=== PATIENT | male | born 1945 | race American Indian/Alaskan Native ===

== ENCOUNTER 2019-05-06 15:45 | Observation (INO) | payer MEDICARE ==
--- NOTE | 2019-05-06 16:43 | Emergency Department Report ---
ED Syncope HPI - General Chief Complaint: Syncope Stated Complaint: FAINTING Time Seen by Provider: 05/06/19 16:09 Source: patient Exam Limitations: no limitations - History of Present Illness Initial Comments: 73-year-old male with no significant past medical history presents to the hospital complaining of syncopal episode. Patient was outside soccer to his family when he has syncopal episode. He states he had mild bilateral flank discomfort described as "knot in his stomach" with mild dizziness and nausea prior to syncopal episode. Patient denies any other preceding symptoms. He struck the top of his head but currently denies headache. He denies blurred patient, nausea, vomiting, diarrhea, melena, hematochezia, chest pain, shortness of breath, dysuria, or decreased by mouth intake. The patient denies any past medical history but has not seen a doctor in many years. He does not smoke cigarettes and drinks alcohol only on occasion. He does not take any current medication. - Related Data Allergies/Adverse Reactions: Allergies No Known Allergies Allergy (Unverified 05/06/19 16:49) Home Medications: Ambulatory Orders No Known Home Medications [No Reported Home Medications] 05/06/19 ED Review of Systems ROS: Stated complaint: FAINTING Other details as noted in HPI Comment: All other systems reviewed and negative ED Past Medical Hx - Past Medical History Previous Medical History?: No - Surgical History Past Surgical History?: No - Social History Smoking Status: Never Smoker Substance Use Type: None - Medications Home Medications: Home Medications Medication Instructions Recorded Confirmed Last Taken Type No Known Home Medications [No 05/06/19 05/06/19 Unknown History Reported Home Medications] ED Physical Exam - General Limitations: No Limitations - Other Other exam information: General: No acute distress Head: Atraumatic Eyes: normal appearance, pupils equal reactive to light, extraocular movements intact ENT: Moist mucous membranes Neck: Normal appearance, no midline tenderness Chest: Clear to auscultation bilaterally CV: Regular rate and rhythm Abdomen: Soft, normal bowel sounds, nontender, nondistended, no rebound or guarding Back: Normal inspection Extremity: Normal inspection infection, full range of motion Neuro: Alert O x 3, no facial asymmetry, speech clear, no gross motor sensory deficit , [id number] function intact Psych: Appropriate behavior Skin: No rash ED Course Vital Signs 05/06/19 05/06/19 05/06/19 16:04 16:15 16:30 Temperature 98.2 F Pulse Rate 100 H 93 H 96 H Pulse Rate [ Lying] Pulse Rate [ Sitting] Pulse Rate [ Standing] Respiratory 18 16 16 Rate Blood Pressure 165/86 Blood Pressure 143/78 146/76 [Left] Blood Pressure [Lying] Blood Pressure [Sitting] Blood Pressure [Standing] O2 Sat by Pulse 97 99 97 Oximetry 05/06/19 05/06/19 05/06/19 16:36 16:44 16:47 Temperature Pulse Rate 99 H 102 H Pulse Rate [ Lying] Pulse Rate [ Sitting] Pulse Rate [ Standing] Respiratory 18 16 16 Rate Blood Pressure Blood Pressure 166/78 172/84 [Left] Blood Pressure [Lying] Blood Pressure [Sitting] Blood Pressure [Standing] O2 Sat by Pulse 97 97 97 Oximetry 05/06/19 05/06/19 05/06/19 16:50 17:09 17:23 Temperature Pulse Rate 118 H 94 H 104 H Pulse Rate [ 99 H Lying] Pulse Rate [ 100 H Sitting] Pulse Rate [ 116 H Standing] Respiratory 16 19 15 Rate Blood Pressure 161/79 Blood Pressure 163/94 [Left] Blood Pressure 166/78 [Lying] Blood Pressure 172/84 [Sitting] Blood Pressure 163/94 [Standing] O2 Sat by Pulse 97 97 98 Oximetry 05/06/19 05/06/19 05/06/19 17:31 17:45 18:00 Temperature Pulse Rate 94 H 95 H 94 H Pulse Rate [ Lying] Pulse Rate [ Sitting] Pulse Rate [ Standing] Respiratory 20 18 16 Rate Blood Pressure 161/79 161/79 140/83 Blood Pressure [Left] Blood Pressure [Lying] Blood Pressure [Sitting] Blood Pressure [Standing] O2 Sat by Pulse 98 98 Oximetry 05/06/19 05/06/19 05/06/19 18:15 18:30 18:45 Temperature Pulse Rate 93 H 95 H 91 H Pulse Rate [ Lying] Pulse Rate [ Sitting] Pulse Rate [ Standing] Respiratory 17 20 12 Rate Blood Pressure 145/84 151/78 139/76 Blood Pressure [Left] Blood Pressure [Lying] Blood Pressure [Sitting] Blood Pressure [Standing] O2 Sat by Pulse 97 98 Oximetry 05/06/19 05/06/19 05/06/19 19:00 19:11 19:15 Temperature 98.1 F Pulse Rate 90 90 102 H Pulse Rate [ Lying] Pulse Rate [ Sitting] Pulse Rate [ Standing] Respiratory 17 17 17 Rate Blood Pressure 139/81 139/81 Blood Pressure 129/74 [Left] Blood Pressure [Lying] Blood Pressure [Sitting] Blood Pressure [Standing] O2 Sat by Pulse 98 98 Oximetry 05/06/19 05/06/19 05/06/19 19:21 19:31 19:41 Temperature Pulse Rate 86 102 H 86 Pulse Rate [ Lying] Pulse Rate [ Sitting] Pulse Rate [ Standing] Respiratory 11 L 11 L 20 Rate Blood Pressure 129/74 153/84 139/81 Blood Pressure [Left] Blood Pressure [Lying] Blood Pressure [Sitting] Blood Pressure [Standing] O2 Sat by Pulse 97 94 97 Oximetry 05/06/19 05/06/19 05/06/19 19:51 20:00 20:11 Temperature Pulse Rate 92 H 81 73 Pulse Rate [ Lying] Pulse Rate [ Sitting] Pulse Rate [ Standing] Respiratory 13 16 14 Rate Blood Pressure 143/82 119/78 119/78 Blood Pressure [Left] Blood Pressure [Lying] Blood Pressure [Sitting] Blood Pressure [Standing] O2 Sat by Pulse 98 99 96 Oximetry 05/06/19 05/06/19 05/06/19 20:21 20:30 20:41 Temperature Pulse Rate 83 83 89 Pulse Rate [ Lying] Pulse Rate [ Sitting] Pulse Rate [ Standing] Respiratory 11 L 14 14 Rate Blood Pressure 115/74 111/70 111/70 Blood Pressure [Left] Blood Pressure [Lying] Blood Pressure [Sitting] Blood Pressure [Standing] O2 Sat by Pulse 97 98 97 Oximetry 05/06/19 05/06/19 20:51 21:00 Temperature Pulse Rate 89 81 Pulse Rate [ Lying] Pulse Rate [ Sitting] Pulse Rate [ Standing] Respiratory 11 L 14 Rate Blood Pressure 118/83 137/83 Blood Pressure [Left] Blood Pressure [Lying] Blood Pressure [Sitting] Blood Pressure [Standing] O2 Sat by Pulse 94 98 Oximetry ED Medical Decision Making - Lab Data Result diagrams: 05/06/19 16:50 05/06/19 16:56 Lab Results 05/06/19 05/06/19 05/06/19 Range/Units 16:42 16:50 16:56 WBC 10.6 (4.5-11.0) K/mm3 RBC 5.05 H (3.65-5.03) M/mm3 Hgb 14.4 (11.8-15.2) gm/dl Hct 43.8 (35.5-45.6) % MCV 87 (84-94) fl MCH 29 (28-32) pg MCHC 33 (32-34) % RDW 14.3 (13.2-15.2) % Plt Count 245 (140-440) K/mm3 Lymph % (Auto) 33.5 (13.4-35.0) % [place] % (Auto) 5.7 (0.0-7.3) % Eos % (Auto) 0.6 (0.0-4.3) % Baso % (Auto) 1.3 (0.0-1.8) % Lymph # 3.6 (1.2-5.4) K/mm3 [place] # 0.6 (0.0-0.8) K/mm3 Eos # 0.1 (0.0-0.4) K/mm3 Baso # 0.1 (0.0-0.1) K/mm3 Seg Neutrophils % 58.9 (40.0-70.0) % Seg Neutrophils # 6.3 (1.8-7.7) K/mm3 PT 14.3 (12.2-14.9) Sec. INR 1.12 (0.87-1.13) Sodium (137-145) mmol/L Potassium (3.6-5.0) mmol/L Chloride (98-107) mmol/L Carbon Dioxide (22-30) mmol/L Anion Gap mmol/L BUN (9-20) mg/dL Creatinine (0.8-1.5) mg/dL Estimated GFR ml/min BUN/Creatinine Ratio % Glucose (75-100) mg/dL POC Glucose 129 H (70-105) Calcium (8.4-10.2) mg/dL Total Bilirubin (0.1-1.2) mg/dL AST (5-40) units/L ALT (7-56) units/L Alkaline Phosphatase (35-129) units/L Troponin T (0.00-0.029) ng/mL Total Protein (6.3-8.2) g/dL Albumin (3.9-5) g/dL Albumin/Globulin Ratio % 05/06/19 05/06/19 Range/Units 16:56 16:56 WBC (4.5-11.0) K/mm3 RBC (3.65-5.03) M/mm3 Hgb (11.8-15.2) gm/dl Hct (35.5-45.6) % MCV (84-94) fl MCH (28-32) pg MCHC (32-34) % RDW (13.2-15.2) % Plt Count (140-440) K/mm3 Lymph % (Auto) (13.4-35.0) % [place] % (Auto) (0.0-7.3) % Eos % (Auto) (0.0-4.3) % Baso % (Auto) (0.0-1.8) % Lymph # (1.2-5.4) K/mm3 [place] # (0.0-0.8) K/mm3 Eos # (0.0-0.4) K/mm3 Baso # (0.0-0.1) K/mm3 Seg Neutrophils % (40.0-70.0) % Seg Neutrophils # (1.8-7.7) K/mm3 PT (12.2-14.9) Sec. INR (0.87-1.13) Sodium 140 (137-145) mmol/L Potassium 3.4 L (3.6-5.0) mmol/L Chloride 99.5 (98-107) mmol/L Carbon Dioxide 23 (22-30) mmol/L Anion Gap 21 mmol/L BUN 16 (9-20) mg/dL Creatinine 1.2 (0.8-1.5) mg/dL Estimated GFR 60 ml/min BUN/Creatinine Ratio 13 % Glucose 134 H (75-100) mg/dL POC Glucose (70-105) Calcium 9.3 (8.4-10.2) mg/dL Total Bilirubin 0.70 (0.1-1.2) mg/dL AST 16 (5-40) units/L ALT 11 (7-56) units/L Alkaline Phosphatase 70 (35-129) units/L Troponin T < 0.010 (0.00-0.029) ng/mL Total Protein 9.1 H (6.3-8.2) g/dL Albumin 4.1 (3.9-5) g/dL Albumin/Globulin Ratio 0.8 % - EKG Data -: EKG Interpreted by De EKG shows normal: sinus rhythm, ST-T waves (no stemi) - Radiology Data Radiology results: report reviewed CHEST 1 VIEW INDICATION / CLINICAL INFORMATION: Syncope. COMPARISON: None avail able. FINDINGS: SUPPORT DEVICES: None. HEART / MEDIASTINUM: No significant abnormality. LUNGS / PLEURA: Mild interstitial prominence No pneumothorax. ADDITIONAL FINDINGS: No significant additional findings. IMPRESSION: Suboptimal inspiration. There is mild interstitial prominence present. No other significant abnormality. CT head/brain wo con INDICATION: syncope. TECHNIQUE: Routine CT head without contrast. All CT scans at this location are performed using CT dose reduction for ALARA by means of automated exposure control. COMPARISON: None. FINDINGS: BRAIN / INTRACRANIAL CONTENTS: No acute hemorrhage, mass effect, midline shift, or hydrocephalus. No appreciable acute large territorial or lacunar infarct. No chronic infarct. Age-commensurate ventricular and cisternal/sulcal prominence. ORBITS: No significant abnormality of visualized orbits. SINUSES / MASTOIDS: There is opacification of the right maxillary sinus with expansion of the right maxillary sinus. Additionally, there is mucosal thickening in the right anterior ethmoid air cells and right frontal sinus. Findings suggest obstruction of the level of the right ostiomeatal unit. ADDITIONAL FINDINGS: None. IMPRESSION: 1. No acute intracranial abnormality. 2. Sinus findings suggesting sinus drainage obstruction at the level of the right ostiomeatal unit. - Medical Decision Making pt with syncope pt's ed workup unremarkable will be admit to the hospital for syncope workup case d/w hospitalist - Differential Diagnosis vasovagal, anemia, arrhythmia, dissection, HI, dehydration Critical Care Time: No Critical care attestation.: If time is entered above; I have spent that time in minutes in the direct care of this critically ill patient, excluding procedure time. ED Disposition Clinical Impression: Elevated blood pressure reading Syncope Qualifiers: Encounter type: initial encounter Disposition: OP ADMIT IP TO THIS HOSP Is pt being admited?: Yes Condition: Stable Time of Disposition: 18:50 (dr Bowden/hosp)
[2019-05-06 17:19] LABS: Basophils # (Auto) 0.1 K/mm3 (0.0-0.1); Basophils % (Auto) 1.3 % (0.0-1.8); Eosinophils # (Auto) 0.1 K/mm3 (0.0-0.4); Eosinophils % (Auto) 0.6 % (0.0-4.3); Hematocrit 43.8 % (35.5-45.6); Hemoglobin 14.4 gm/dl (11.8-15.2); Lymphocytes # (Auto) 3.6 K/mm3 (1.2-5.4); Lymphocytes % (Auto) 33.5 % (13.4-35.0); Mean Corpuscular HGB Conc 33 % (32-34); Mean Corpuscular Volume 87 fl (84-94); Monocytes # (Auto) 0.6 K/mm3 (0.0-0.8); Monocytes % (Auto) 5.7 % (0.0-7.3); Platelet Count 245 K/mm3 (140-440); Red Blood Count 5.05 M/mm3 (3.65-5.03); Red Cell Distribution Width 14.3 % (13.2-15.2)
[2019-05-06 17:25] LABS: Albumin 4.1 g/dL (3.9-5); Calcium 9.3 mg/dL (8.4-10.2)
--- NOTE | 2019-05-06 17:27 | XRay Report ---
CHEST 1 VIEW INDICATION / CLINICAL INFORMATION: Syncope. COMPARISON: None available. FINDINGS: SUPPORT DEVICES: None. HEART / MEDIASTINUM: No significant abnormality. LUNGS / PLEURA: Mild interstitial prominence No pneumothorax. ADDITIONAL FINDINGS: No significant additional findings. IMPRESSION: Suboptimal inspiration. There is mild interstitial prominence present. No other significant abnormali ty. Signer Name: Jeramie Carter MD FACR Signed: 05/06/2019 5:22 PM Workstation Name: [id number]
[2019-05-06 17:48] LABS: INR 1.12 (0.87-1.13)
--- NOTE | 2019-05-06 17:50 | Cat Scan Report ---
CT head/brain wo con INDICATION: syncope. TECHNIQUE: Routine CT head without contrast. All CT scans at this location are performed using CT dos e reduction for ALARA by means of automated exposure control. COMPARISON: None. FINDINGS: BRAIN / INTRACRANIAL CONTENTS: No acute hemorrhage, mass effect, midline shift, or hydrocephalus. No appreciable acute large territorial or lacunar infarct. No chronic infarct. Age-commensurate ventricu lar and cisternal/sulcal prominence. ORBITS: No significant abnormality of visualized orbits. SINUSES / MASTOIDS: There is opacification of the right maxillary sinus with expansion of the right m axillary sinus. Additionally, there is mucosal thickening in the right anterior ethmoid air cells and right frontal sinus. Findings suggest obstruction of the level of the right ostiomeatal unit. ADDITIONAL FINDINGS: None. IMPRESSION: 1. No acute intracranial abnormality. 2. Sinus findings suggesting sinus drainage obstruction at the level of the right ostiomeatal unit. Signer Name: William Richardson MD Signed: 05/06/2019 5:45 PM Workstation Name: [id number]
[2019-05-06] MEDS ORDERED: ACETAMINOPHEN 325 MG TAB PO PRN (18:54)
[2019-05-06] MEDS ORDERED: SODIUM CHLORIDE 0.9% 1000 ML 1,000 ML IV ONE (18:54)
[2019-05-06] MEDS ORDERED: ALBUTEROL 2.5 MG/3 ML NEBU IH PRN (18:54)
[2019-05-06] MEDS ORDERED: POTASSIUM CHLORIDE ER 20 MEQ TAB PO ONE (18:54)
[2019-05-06] MEDS ORDERED: ONDANSETRON 4 MG/2 ML INJ IV PRN (18:54)
--- NOTE | 2019-05-06 18:57 | History and Physical Report ---
History of Present Illness Chief complaint: I just passed out History of present illness: 73 YO Male with Obesity presents to ED for evaluation. Pt states that he was in his usual state of health when he felt a sudden onset of dizziness, followed by nausea and the a loss of consciousness. Pt fell from a standing position and struck his head on the ground. EMS notified, and upon arrival the patient was found to be in distress, and transported to [facility]. Pt seen and evaluated in ED and found to have Syncopal Episode. Pt reports a prior episode 1 month ago. Pt placed in observation status and admitted to medical floor. Pt denies fever, chills, CP, Palpitations, loss of bowel/bladder continence, productive cough, skin rash, or recent ill contacts. No prior admission for review. No medication listed for reconciliation at time of admission. Past History Past Medical History: No medical history, other (reviewed) Past Surgical History: No surgical history, Other (reviewed) Social history: single. denies: smoking, alcohol abuse, prescription drug abuse Family history: hypertension Medications and Allergies Allergies Allergy/AdvReac Type Severity Reaction Status Date / Time No Known Allergies Allergy Unverified 05/06/19 16:49 Home Medications Medication Instructions Recorded Confirmed Last Taken Type No Known Home Medications [No 05/06/19 05/06/19 Unknown History Reported Home Medications] Active Meds: Active Medications Acetaminophen (Tylenol) 650 mg PO Q4H PRN PRN Reason: Pain MILD(1-3)/Fever >100.5/OHARA Albuterol (Proventil) 2.5 mg IH Q4HRT PRN PRN Reason: Shortness Of Breath Sodium Chloride (Nacl 0.9% 1000 Ml) 1,000 mls @ 250 mls/hr IV BOLUS ONE Stop: 05/06/19 22:53 Ondansetron HCl (Zofran) 4 mg IV Q8H PRN PRN Reason: Nausea And Vomiting Sodium Chloride (Sodium Chloride Flush Syringe 10 Ml) 10 ml IV BID ROSAS Sodium Chloride (Sodium Chloride Flush Syringe 10 Ml) 10 ml IV PRN PRN PRN Reason: LINE FLUSH Review of Systems Constitutional: no weight loss, no weight gain, no fever, no chills Ears, nose, mouth and throat: no ear pain, no ear discharge, no tinnitis, no decreased hearing, no nose pain, no nasal congestion Cardiovascular: syncope, no chest pain, no orthopnea, no palpitations, no rapid/irregular heart beat, no shortness of breath Respiratory: no cough, no cough with sputum, no excessive sputum, no dyspnea on exertion Gastrointestinal: nausea, no abdominal pain, no vomiting, no diarrhea, no constipation Genitourinary Male: no hematuria, no flank pain, no discharge, no urinary frequency, no urinary hesitancy Rectal: no pain, no incontinence, no bleeding Musculoskeletal: no neck stiffness, no neck pain, no shooting arm pain, no arm numbness/tingling, no low back pain, no shooting leg pain Integumentary: no rash, no pruritis, no redness, no sores, no wounds Neurological: no transient paralysis, no paralysis, no weakness, no parathesias, no numbness, no tingling, no seizures Psychiatric: no anxiety, no memory loss, no change in sleep habits, no sleep disturbances, no insomnia, no change in appetite, no change in libido Endocrine: no cold intolerance, no heat intolerance, no polyphagia, no excessive thirst, no polydipsia Hematologic/Lymphatic: no easy bruising, no easy bleeding Allergic/Immunologic: no urticaria, no allergic rhinitis, no wheezing Exam - Constitutional Vitals: Temp Pulse Resp BP Pulse Ox 98.2 F 91 H 12 139/76 98 05/06/19 16:04 05/06/19 18:45 05/06/19 18:45 05/06/19 18:45 05/06/19 18:45 General appearance: Present: mild distress, obese - EENT Eyes: Present: PERRL ENT: hearing intact, clear oral mucosa - Neck Neck: Present: supple, normal ROM - Respiratory Respiratory effort: normal Respiratory: bilateral: CTA - Cardiovascular Heart Sounds: Present: S1 & S2. Absent: rub, click - Extremities Extremities: pulses symmetrical, No edema Peripheral Pulses: within normal limits - Abdominal General gastrointestinal: Present: soft, non-tender, non-distended, normal bowel sounds Male genitourinary: Present: normal - Integumentary Integumentary: Present: clear, warm, dry - Musculoskeletal Musculoskeletal: gait normal, strength equal bilaterally - Psychiatric Psychiatric: appropriate mood/affect, intact judgment & insight - Neurologic Neurologic: CNII-XII intact, moves all extremities Results - Labs CBC & Chem 7: 05/06/19 16:50 05/06/19 16:56 Labs: Abnormal lab results 05/06/19 05/06/19 05/06/19 Range/Units 16:42 16:50 16:56 RBC 5.05 H (3.65-5.03) M/mm3 Potassium 3.4 L (3.6-5.0) mmol/L Glucose 134 H (75-100) mg/dL POC Glucose 129 H (70-105) Total Protein 9.1 H (6.3-8.2) g/dL Assessment and Plan - Patient Problems (1) Syncope Current Visit: Yes Status: Acute Qualifiers: Encounter type: initial encounter Plan to address problem: CT head, neuro check, remote telemetry, echo, cardiac enzymes, bnp, d dimer, thyroid panel, carotid doppler, seizure precautions, aspiration precautions, fall precautions. (2) Opacified maxillary sinus Current Visit: Yes Status: Acute Plan to address problem: Outpatient ENT F/U care. (3) DVT prophylaxis Current Visit: Yes Status: Acute Plan to address problem: SCD to BLE while in bed, Pt ambulatory
[2019-05-06 20:43] LABS: Free T4 (Free Thyroxine) 1.09 ng/dL (0.76-1.46)
[2019-05-07 06:10] LABS: BUN/Creatinine Ratio 16; Blood Urea Nitrogen 13 mg/dL (9-20); Calcium 8.4 mg/dL (8.4-10.2); Hemolysis Index 7
--- NOTE | 2019-05-07 11:21 | Vascular Lab Report ---
BILATERAL CAROTID DOPPLER ULTRASOUND INDICATION : syncope TECHNIQUE: Grayscale and color Doppler imaging performed through the neck. COMPARISON: None FINDINGS: Right: There is no significant atherosclerotic disease. Peak systolic velocity in the CCA is 65 cm/ s with end-diastolic velocity of 15 cm/s. Peak systolic velocity in the proximal ICA is 65 cm/s with end-diastolic velocity of 22 cm/s. ICA to CCA ratio is less than 2. There is antegrade flow in the E CA and the vertebral artery. Left: There is no significant atherosclerotic disease. Peak systolic velocity in the CCA is 66 cm/s w ith end-diastolic velocity of 10 cm/s. Peak systolic velocity in the proximal ICA is 64 cm/s with end -diastolic velocity of 19 cm/s. ICA to CCA ratio is less than 2. There is antegrade flow in the ECA and the vertebral artery. IMPRESSION: No hemodynamically significant stenosis by NASCET criteria. Signer Name: Zoltan Israel Jr, MD Signed: 05/07/2019 11:17 AM Workstation Name: [id number]
--- NOTE | 2019-05-07 11:56 | Progress Note ---
Assessment and Plan Assessment and plan: 73-year-old man with no significant past medical history who presents to the hospital with syncope. He states that he was outside with his family, he denies any dizziness or any prodrome he suddenly was unconscious. He was with family, therefore the event was witnessed. He apparently was unconscious for less than a minute and when he became conscious, he was mentating normally. Syncope Concerning as patient did not have any dizziness, no prodrome, happened suddenly. This is the second episode. Monitor on telemetry. Cardiology consulted, echo and carotid Dopplers pending. Concerned that the origin is cardiac in nature, explained to patient that he will likely be discharged with a Holter monitor, Orthostatics were checked in the ER, no significant change -Patient discussed with school age teacher -Check d-dimer, it was ordered yesterday at 7 PM was not done. Have reordered it and informed the the floor area secretary at 1155. -if D-dimer elevated, will obtain CTA to r/o PE DVT prophylaxis; early ambulation History Interval history: Review of systems Constitutional: No fevers, no malaise, no joint pains CVS: No chest pain, no orthopnea, no pedal edema GI: No abdominal pain, no diarrhea, no vomiting, no constipation Respiratory: , no wheezing, no coughing Hospitalist Physical - Physical exam Narrative exam: General.: Appears well, no distress, nontoxic HEENT: Moist mucous membranes, extraocular muscles intact, no lymphadenopathy Neck: supple Cardiac: S1-S2 heard Lungs: clear to auscultation bilaterally Abdomen: soft , nontender, nondistended, bowel sounds positive Extremities: no edema clubbing or cyanosis Skin: no rash or lesions Neurologic: no gross focal deficits Psych: calm, and cooperative - Constitutional Vitals: Temp Pulse Resp BP Pulse Ox 98.3 F 81 18 140/74 97 05/07/19 07:38 05/07/19 10:00 05/07/19 07:38 05/07/19 07:38 05/07/19 10:00 General appearance: Present: mild distress, obese Results - Labs CBC & Chem 7: 05/06/19 16:50 05/07/19 05:10 Labs: Laboratory Last Values WBC 10.6 K/mm3 (4.5-11.0) 05/06/19 16:50 RBC 5.05 M/mm3 (3.65-5.03) H 05/06/19 16:50 Hgb 14.4 gm/dl (11.8-15.2) 05/06/19 16:50 Hct 43.8 % (35.5-45.6) 05/06/19 16:50 MCV 87 fl (84-94) 05/06/19 16:50 MCH 29 pg (28-32) 05/06/19 16:50 MCHC 33 % (32-34) 05/06/19 16:50 RDW 14.3 % (13.2-15.2) 05/06/19 16:50 Plt Count 245 K/mm3 (140-440) 05/06/19 16:50 Lymph % (Auto) 33.5 % (13.4-35.0) 05/06/19 16:50 [place] % (Auto) 5.7 % (0.0-7.3) 05/06/19 16:50 Eos % (Auto) 0.6 % (0.0-4.3) 05/06/19 16:50 Baso % (Auto) 1.3 % (0.0-1.8) 05/06/19 16:50 Lymph # 3.6 K/mm3 (1.2-5.4) 05/06/19 16:50 [place] # 0.6 K/mm3 (0.0-0.8) 05/06/19 16:50 Eos # 0.1 K/mm3 (0.0-0.4) 05/06/19 16:50 Baso # 0.1 K/mm3 (0.0-0.1) 05/06/19 16:50 Seg Neutrophils % 58.9 % (40.0-70.0) 05/06/19 16:50 Seg Neutrophils # 6.3 K/mm3 (1.8-7.7) 05/06/19 16:50 PT 14.3 Sec. (12.2-14.9) 05/06/19 16:56 INR 1.12 (0.87-1.13) 05/06/19 16:56 Sodium 138 mmol/L (137-145) 05/07/19 05:10 Potassium 4.0 mmol/L (3.6-5.0) 05/07/19 05:10 Chloride 103.8 mmol/L (98-107) 05/07/19 05:10 Carbon Dioxide 21 mmol/L (22-30) L 05/07/19 05:10 Anion Gap 17 mmol/L 05/07/19 05:10 BUN 13 mg/dL (9-20) 05/07/19 05:10 Creatinine 0.8 mg/dL (0.8-1.5) 05/07/19 05:10 Estimated GFR > 60 ml/min 05/07/19 05:10 BUN/Creatinine Ratio 16 % 05/07/19 05:10 Glucose 88 mg/dL (75-100) 05/07/19 05:10 POC Glucose 129 (70-105) H 05/06/19 16:42 Calcium 8.4 mg/dL (8.4-10.2) 05/07/19 05:10 Total Bilirubin 0.70 mg/dL (0.1-1.2) 05/06/19 16:56 AST 16 units/L (5-40) 05/06/19 16:56 ALT 11 units/L (7-56) 05/06/19 16:56 Alkaline Phosphatase 70 units/L (35-129) 05/06/19 16:56 Troponin T < 0.010 ng/mL (0.00-0.029) 05/06/19 16:56 Total Protein 9.1 g/dL (6.3-8.2) H 05/06/19 16:56 Albumin 4.1 g/dL (3.9-5) 05/06/19 16:56 Albumin/Globulin Ratio 0.8 % 05/06/19 16:56 TSH 0.966 mlU/mL (0.270-4.200) 05/06/19 19:21 Free T4 1.09 ng/dL (0.76-1.46) 05/06/19 19:21 Active Medications - Current Medications Current Medications: Generic Name Dose Route Start Last Admin Trade Name Freq PRN Reason Stop Dose Admin Acetaminophen 650 mg 05/06/19 18:54 Tylenol PO Q4H PRN Pain MILD(1-3)/Fever >100.5/OHARA Albuterol 2.5 mg 05/06/19 18:54 Proventil IH Q4HRT PRN Shortness Of Breath Ondansetron HCl 4 mg 05/06/19 18:54 Zofran IV Q8H PRN Nausea And Vomiting Pneumococcal Polyvalent Vaccine 0.5 ml 05/07/19 12:00 Pneumovax 23 IM 05/07/19 12:01 .ONCE ONE Sodium Chloride 10 ml 05/06/19 22:00 05/07/19 11:07 Sodium Chloride Flush Syringe 10 Ml IV 10 ml BID ROSAS Administration Sodium Chloride 10 ml 05/06/19 18:54 Sodium Chloride Flush Syringe 10 Ml IV PRN PRN LINE FLUSH
[2019-05-07] MEDS ORDERED: PNEUMOCOCCAL 23 Valent 0.5 ML VIAL IM ONE (12:00)
--- NOTE | 2019-05-07 12:29 | Consultation ---
History of Present Illness Consult date: 05/07/19 Consult reason: syncope History of present illness: 73 YO Male with Obesity presented to ED for evaluation. Pt stated that he felt a sudden onset of dizziness, followed by nausea and then a loss of consciousness. Patient fell from a standing position and struck his head on the ground. EMS notified, and upon arrival the patient was found to be in distress, and transported to the hospital. Patient reports a prior syncopal episode 1 month ago. The patient denies any chest pain, SOb, peripehral edema, orthopena, pnd, palpitations, dizziness or syncope. Past History Past Medical History: No medical history Past Surgical History: No surgical history Social history: single. denies: smoking, alcohol abuse, prescription drug abuse Family history: hypertension Medications and Allergies Allergies Allergy/AdvReac Type Severity Reaction Status Date / Time No Known Allergies Allergy Unverified 05/06/19 16:49 Home Medications Medication Instructions Recorded Confirmed Last Taken Type No Known Home Medications [No 05/06/19 05/06/19 Unknown History Reported Home Medications] Active Meds: Active Medications Acetaminophen (Tylenol) 650 mg PO Q4H PRN PRN Reason: Pain MILD(1-3)/Fever >100.5/OHARA Albuterol (Proventil) 2.5 mg IH Q4HRT PRN PRN Reason: Shortness Of Breath Ondansetron HCl (Zofran) 4 mg IV Q8H PRN PRN Reason: Nausea And Vomiting Sodium Chloride (Sodium Chloride Flush Syringe 10 Ml) 10 ml IV BID ROSAS Last Admin: 05/07/19 11:07 Dose: 10 ml Documented by: Sodium Chloride (Sodium Chloride Flush Syringe 10 Ml) 10 ml IV PRN PRN PRN Reason: LINE FLUSH Physical Examination Vital Signs Temp Pulse Resp BP Pulse Ox 98.2 F 100 H 18 165/86 97 05/06/19 16:04 05/06/19 16:04 05/06/19 16:04 05/06/19 16:04 05/06/19 16:04 General appearance: no acute distress HEENT: Positive: PERRL Neck: Positive: neck supple, trachea midline Cardiac: Positive: Reg Rate and Rhythm, irregularly irregular Lungs: Positive: Normal Exam, clear to auscultation Neuro: Positive: Grossly Intact Abdomen: Positive: Unremarkable, Soft Extremities: Present: normal Results 05/06/19 16:50 05/07/19 05:10 Cardiac Enzymes 05/06/19 Range/Units 16:56 AST 16 (5-40) units/L Coagulation 05/06/19 Range/Units 16:56 PT 14.3 (12.2-14.9) Sec. INR 1.12 (0.87-1.13) CBC 05/06/19 Range/Units 16:50 WBC 10.6 (4.5-11.0) K/mm3 RBC 5.05 H (3.65-5.03) M/mm3 Hgb 14.4 (11.8-15.2) gm/dl Hct 43.8 (35.5-45.6) % Plt Count 245 (140-440) K/mm3 Lymph # 3.6 (1.2-5.4) K/mm3 [place] # 0.6 (0.0-0.8) K/mm3 Eos # 0.1 (0.0-0.4) K/mm3 Baso # 0.1 (0.0-0.1) K/mm3 Comprehensive Metabolic Panel 05/06/19 05/07/19 Range/Units 16:56 05:10 Sodium 140 138 (137-145) mmol/L Potassium 3.4 L 4.0 (3.6-5.0) mmol/L Chloride 99.5 103.8 (98-107) mmol/L Carbon Dioxide 23 21 L (22-30) mmol/L BUN 16 13 (9-20) mg/dL Creatinine 1.2 0.8 (0.8-1.5) mg/dL Glucose 134 H 88 (75-100) mg/dL Calcium 9.3 8.4 (8.4-10.2) mg/dL AST 16 (5-40) units/L ALT 11 (7-56) units/L Alkaline Phosphatase 70 (35-129) units/L Total Protein 9.1 H (6.3-8.2) g/dL Albumin 4.1 (3.9-5) g/dL Assessment and Plan Syncope - CT head was negative for acute intracranial abnormality. telemetry shows sinus rhythm. echo pending. carotid doppler negative for carotid stenosis bilaterally. Troponin negative. TSH and FT4 WNL. Syncope is likely vasovegal in origin. Would plan for outpatient stress test and event monitor after discharge.
--- NOTE | 2019-05-07 13:03 | Vascular Lab Report ---
DUPLEX DOPPLER LOWER EXTREMITY VEINS, BILATERAL INDICATION: Lower extremity edema. TECHNIQUE: Duplex doppler imaging was performed through the veins of both lower extremities using venous blayne alf and other maneuvers. COMPARISON: None available. FINDINGS: Right Common femoral vein: Negative. Right Superficial femoral vein: Negative. Right Popliteal vein: Negative. Right Calf veins: Negative. Left Common femoral vein: Negative. Left Superficial femoral vein: Negative. Left Popliteal vein: Negative. Left Calf veins: Negative. Additional findings: None. IMPRESSION: 1. No sonographic evidence for DVT in either lower extremity. Signer Name: Carson Jo MD Signed: 05/07/2019 12:58 PM Workstation Name: [id number]
--- NOTE | 2019-05-07 15:22 | Cat Scan Report ---
CTA of the chest with 3D Reconstruction Indication: ,Syncope, tachycardia Technique: TECHNIQUE: Axial CT images were obtained through the chest after injection of 100 cc of Omnipaque 350 IV contrast. 3 plane MIP reconstructions were produced. All CT scans at this location are performed using CT dose reduction for ALARA by means of automated exposure control. COMPARISON: None Automatic exposure control was utilized in an attempt to reduce radiation dose. Findings: Pulmonary arteries: The main pulmonary artery and right and left pulmonary artery branches fill satis factorily with contrast. No pulmonary embolus is seen. Lungs: No acute pulmonary abnormality is seen. No pneumothorax is seen Mediastinum: Heart size is normal. No adenopathy is seen. Aorta: Normal in diameter. No dissection seen within limits of this exam. Impression: No pulmonary embolus is seen Signer Name: Carson Jo MD Signed: 05/07/2019 3:17 PM Workstation Name: [id number]
[2019-05-08 07:56] VITALS: BP 151/82
--- NOTE | 2019-05-08 09:27 | Discharge Summary ---
Providers - Providers Date of Admission: 05/06/19 18:54 Attending physician: CARMELINA JIMENEZ MD 05/07/19 08:42 Physical Therapy Evaluation and Treat [CONS] Routine Comment: Reason For Exam: Weakness 05/07/19 11:44 Consult to Physician [CONS] Routine Comment: spoke in person/ tunde Consulting Provider: NASH MONTGOMERY Physician Instructions: Reason For Exam: syncope [facility] Hospitalization Condition: Stable Hospital course: 73-year-old man with no significant past medical history who presents to the [facility] with syncope. He states that he was outside with his family, he denies any dizziness or any prodrome he suddenly was unconscious. He was with family, therefore the event was witnessed. He apparently was unconscious for less than a minute and when he became conscious, he was mentating normally. Syncope Concerning as patient did not have any dizziness, no prodrome, happened suddenly. This is the second episode. Monitor on telemetry. Cardiology consulted, echo and carotid Dopplers were within normal limits. Concerned that the origin is cardiac in nature, patient is to follow-up with cardiology as an outpatient for outpatient stress test and event monitor Orthostatics were checked in the ER, no significant change -Patient discussed with jig maker D-dimer was elevated, patient had a CT angiogram of his chest which was negative for PE, lower extremity Dopplers were also negative for DVT DVT prophylaxis; early ambulation Diagnosis Syncope Transient autonomic imbalance Disposition: DC-01 TO HOME OR SELFCARE Time spent for discharge: 33 mins Core Measure Documentation - Palliative Care Palliative Care/ Comfort Measures: Not Applicable - Core Measures Any of the following diagnoses?: none Exam - Constitutional Vitals: Temp Pulse Resp BP Pulse Ox 98.5 F 75 18 151/82 98 05/08/19 07:18 05/08/19 07:18 05/08/19 07:18 05/08/19 07:18 05/08/19 08:43 General appearance: Present: no acute distress, well-nourished - EENT Eyes: Present: PERRL ENT: hearing intact, clear oral mucosa - Neck Neck: Present: supple, normal ROM - Respiratory Respiratory effort: normal Respiratory: bilateral: CTA - Cardiovascular Heart Sounds: Present: S1 & S2. Absent: rub, click - Extremities Extremities: pulses symmetrical, No edema Peripheral Pulses: within normal limits - Abdominal General gastrointestinal: Present: soft, non-tender, non-distended, normal bowel sounds Male genitourinary: Present: normal - Integumentary Integumentary: Present: clear, warm, dry - Musculoskeletal Musculoskeletal: gait normal, strength equal bilaterally - Psychiatric Psychiatric: appropriate mood/affect, intact judgment & insight - Neurologic Neurologic: CNII-XII intact, moves all extremities Plan Follow up with: DONALD MIRAMONTES MD [Primary Care Provider] - 3-5 Days NASH MONTGOMERY MD [Staff Physician] - 7 Days
--- NOTE | 2019-05-08 11:40 | Progress Note ---
Subjective Date of service: 05/08/19 Interval history: Impression Follow-up, no further cardiac issues Echo normal EF 55%, LVH mild TR. Plan Syncope likely vagal CV stable for discharge at this point. Objective Vital Signs Temp Pulse Pulse Resp BP Pulse Ox 05/08/19 08:43 98 05/08/19 07:18 98.5 F 75 18 151/82 98 05/08/19 02:49 98.5 F 69 20 124/85 98 05/07/19 22:00 77 84 98 05/07/19 21:33 98 05/07/19 19:18 98.3 F 77 18 119/69 98 05/07/19 13:13 99.1 F 88 18 151/83 97 - Physical Examination General: Appears Well HEENT: Positive: PERRL Neck: Positive: neck supple, trachea midline Cardiac: Positive: Reg Rate and Rhythm, S1/S2 Lungs: Positive: Normal Exam Neuro: Positive: Grossly Intact Abdomen: Positive: Unremarkable, Soft Extremities: Present: normal
== END 2019-05-08 11:30 | disposition home or self-care (01) ==
LOC: ED 15:45 → 2B-ACE 18:54
PROVIDERS: ADMIT Internal Medicine; ATTEND Internal Medicine
DX: R55 Syncope and collapse (principal); J32.0 Chronic maxillary sinusitis; R03.0 Elevated blood-pressure reading, without diagnosis of hypertension; Z23 Encounter for immunization
CPT/HCPCS: 36415; 70450; 71045; 71275; 80048; 80053; 82962; 84439; 84443; 84484; 85025; 85379; 85610; 90471; 90732; 93005; 93010; 93306; 93880; 93970; 96360; 96361; 97162; 99284; G0378; J7030; Q9967; G0009